=== PATIENT | male | born 1985 | race Caucasian/White ===

== ENCOUNTER 2018-05-15 19:45 | Emergency (ER) | payer OTHER ==
[2018-05-15 19:54] VITALS: O2SAT 98
[2018-05-15] MEDS ORDERED: Tdap Vaccine 0.5 ml Vial (10-64 yrs) IM ONE ×2 (20:33→21:44)
--- NOTE | 2018-05-15 21:10 | ED PDOC ---
HPI: Skin/Bite Injury Time Seen by Provider: 05/15/18 19:56 Chief Complaint (Nursing): Abnormal Skin Integrity Chief Complaint (Provider): Laceration, left 5th digit History Per: Patient History/Exam Limitations: no limitations Onset/Duration Of Symptoms: Mins Current Symptoms Are (Timing): Still Present Quality Of Symptoms: Painful Severity: Moderate Pain Scale Rating Of: 7 Additional Complaint(s): 33 yo male with no medical problems presents for evaluation of left 5th digit pain and laceration. PT states that his finger was closed in a door. Pt reports localized pain, no numbness/tingling. Unknown last tetanus. Past Medical History Reviewed: Historical Data, Nursing Documentation, Vital Signs Vital Signs: Last Vital Signs Temp 97.9 F 05/15/18 19:52 Pulse 107 H 05/15/18 19:52 Resp 16 05/15/18 19:52 BP 136/94 H 05/15/18 19:52 Pulse Ox 98 05/15/18 19:52 - Medical History PMH: No Chronic Diseases - Surgical History Surgical History: No Surg Hx - Family History Family History: States: No Known Family Hx - Living Arrangements Living Arrangements: With Family - Social History Current smoker - smoking cessation education provided: No Alcohol: None Drugs: Denies - Allergies Allergies/Adverse Reactions: Allergies Allergy/AdvReac Type Severity Reaction Status Date / Time No Known Allergies Allergy Verified 05/15/18 19:52 Review of Systems ROS Statement: Except As Marked, All Systems Reviewed And Found Negative Constitutional: Negative for: Fever, Chills Musculoskeletal: Positive for: Other Skin: Positive for: Other Physical Exam - Reviewed Nursing Documentation Reviewed: Yes Vital Signs Reviewed: Yes - Physical Exam Appears: Positive for: Well, Non-toxic, No Acute Distress Head Exam: Positive for: ATRAUMATIC, NORMAL INSPECTION, NORMOCEPHALIC Skin: Positive for: Warm. Negative for: Normal Color (mild ecchymosis, anterior 5th digit over the middle and proximal phalange, (+) laceration of the anterior left 5th phalange approx 2 cm curvilinear) Eye Exam: Positive for: Normal appearance ENT: Positive for: Normal ENT Inspection Neck: Positive for: Normal Cardiovascular/Chest: Negative for: Bradycardia, Tachycardia Respiratory: Negative for: Accessory Muscle Use, Respiratory Distress Back: Positive for: Normal Inspection Extremity: Positive for: Normal ROM, Tenderness (left, 5th middle phalange ), Capillary Refill, Swelling (5th digit, left ). Negative for: Deformity Neurologic/Psych: Positive for: Alert, Oriented - ECG O2 Sat by Pulse Oximetry: 98 (RA) Pulse Ox Interpretation: Normal Medical Decision Making Medical Decision Making: Time: 2030 Initial Plan: --Tetanus 0.5 mL IM --X-ray hand left 5th digit --Laceration, repair. 2127 --Ancef 1gm IV Discussed case with Dr. Wallis. Ulna gutter splint placed. Instructed patient to call on thursday for appointment with Dr. Wallis. Importance of close follow-up for ipen fracture discussed with patient. Disposition - Clinical Impression Clinical Impression: Finger fracture, left, Finger laceration, Tetanus toxoid vaccination a dministered at current visit - Disposition Referrals: Kalyani Wallis MD [Staff Provider] - Disposition: Routine/Home Disposition Time: 21:54 Condition: STABLE Instructions: Laceration Repair Forms: [employer] (Indonesian) Laceration - Laceration Repair Left, 5th digit Wound Length (In cm): 2 Description Of Wound: Linear Wound Cleansed With: Sterile Saline Anesthesia: Lidocaine 1% Wound Examination: Irrigated With Saline, No FB With Wound Exploration, No Tendon Injury With Wound Exploration Wound Closure: Suture (5.0 - Nylon) Suture Technique And Material Used: Interrupted Wound Complexity: Simple (#3)
[2018-05-15] MEDS ORDERED: Piperacillin/Tazobact 3.375 GM in Sodium Chloride 0.9% 100 ML IV ONE (21:24)
[2018-05-15] MEDS ORDERED: ceFAZolin 1 GM in Sodium Chloride 0.9% 100 ML IVPB ONE (21:28)
[2018-05-15 22:12] VITALS: BP 137/81; PULSE 78; RESP 17; TEMP 98.6
--- NOTE | 2018-05-15 22:23 | RAD ---
PROCEDURE: Left Hand Radiographs. HISTORY: crush injury COMPARISON: None. FINDINGS: BONES: Comminuted fracture 5th middle phalanx with soft tissue swelling. JOINTS: Normal. No osteoarthritic changes. SOFT TISSUES: Normal. OTHER FINDINGS: None. IMPRESSION: Comminuted fracture 5th middle phalanx with soft tissue swelling.
== END 2018-05-15 22:42 | disposition home or self-care (01) ==
LOC: H.ER 19:45
DX: S62.607A Fracture of unspecified phalanx of left little finger, initial encounter for closed fracture (principal); Z23 Encounter for immunization; S61.217A Laceration without foreign body of left little finger without damage to nail, initial encounter; W23.0XXA Caught, crushed, jammed, or pinched between moving objects, initial encounter
CPT/HCPCS: 12001; 73140; 90471; 90715; 96374; 99284; J0690